=== PATIENT | female | born 1985 | race Caucasian/White ===

== ENCOUNTER 2017-09-02 08:28 | Emergency (ER) | END 2017-09-02 09:43 | disposition home or self-care (01) ==

== ENCOUNTER 2018-10-16 09:14 | Emergency (ER) | payer MEDICAID ==
[~2018-10-16] VITALS: Ht 165.1 cm; Wt 129.4 kg
[~2018-10-16 09:14] MED LIST: ACET500C5 PO; AMOX1TAB10 PO; CIPR7.5D BOTH EARS; NPH10OT LEFT EAR; PRENAT PO
[2018-10-16 09:20] VITALS: BP 131/75; PULSE 78; RESP 16; Ht 165.1 cm; Wt 129.4 kg
[2018-10-16] MEDS ORDERED: NPH10OT RIGHT EAR (09:46)
[2018-10-16] MEDS ORDERED: IBUP-1542 PO (09:46)
--- NOTE | 2018-10-16 10:02 | ERD ---
ER Documentation Chief Complaint Chief Complaint right ear pain and sore throat x 3 days HPI 33-year-old female presents with complaint of right ear pain and sore throat for the past 3 days. Patient denies any decreased hearing from her ear, discharge from the ear, swelling or tenderness behind her ears, fevers, chills, headache. Denies drooling, trismus, difficulty swallowing, muffled voice, difficulty breathing, rash, or neck stiffness. ROS All systems reviewed and are negative except as per history of present illness. Medications Home Meds Active Scripts Ibuprofen* (Motrin*) 600 Mg Tab, 600 MG PO Q6, #30 TAB Prov:ANNIE BRAXTON 10/16/18 Neomycin/Polymyxin/Hydrocort* (Cortisporin* Otic) 10 Ml Susp, 4 DROP RIGHT EAR QID for 7 Days, EA Prov:ANNIE BRAXTON 10/16/18 Neomycin/Polymyxin/Hydrocort* (Cortisporin* Otic) 10 Ml Susp, 4 DROP LEFT EAR QID for 7 Days, EA Prov:SARAH LICONA PA-C 05/19/18 Ciprofloxacin Hcl/Dexameth (Ciprodex Otic Suspension) 7.5 Ml Drops.susp, 4 DROP BOTH EARS BID for 7 Days, EA Prov:ARIAN RHOADES 09/02/17 Acetaminophen* (Tylophen*) 500 Mg Capsule, 1 CAP PO Q6H PRN for PAIN AND OR ELEVATED TEMP, #20 CAP Prov:ARIAN RHODAES F 09/02/17 Amoxicillin/Potassium Clav (Amox-Clav 875-125 mg Tablet) 875-125 mg Tab, 1 TAB PO BID for 7 Days, #14 TAB Prov:KALINAILAIRWIN WESLEYAR F 09/02/17 Reported Medications Multivit/Min/Fol Ac/Iron/Pren* ( S*) 1 Tab Tab, 1 TAB PO DAILY, TAB 10/11/13 Allergies Allergies: Coded Allergies: No Known Allergy (Verified , 09/02/17) PMhx/Soc Medical and Surgical Hx: pt denies Medical Hx, pt denies Surgical Hx History of Surgery: No Anesthesia Reaction: No Hx Neurological Disorder: No Hx Respiratory Disorders: No Hx Cardiac Disorders: No Hx Psychiatric Problems: No Hx Miscellaneous Medical Probl: No Hx Alcohol Use: No Hx Substance Use: No Hx Tobacco Use: No Smoking Status: Never smoker FmHx Family History: No diabetes, No coronary disease, No other Physical Exam Vitals Vital Signs Date Temp Pulse Resp B/P (MAP) Pulse Ox O2 O2 Flow FiO2 Time Delivery Rate 10/16/18 97.5 78 16 131/75 97 09:20 (93) Physical Exam Const: No acute distress Head: Atraumatic Eyes: Normal Conjunctiva ENT: Normal External Ears, Nose and Mouth. Right ear canal is edematous with white discharge noted. TM appears intact. There is no mastoid erythema, edema, or tenderness to palpation bilaterally. Tonsils are nonedematous erythematous bilaterally with no exudates. Uvula is midline. There are no peritonsillar masses noted. Neck: Full range of motion. No meningismus. No lymphadenopathy Resp: Clear to auscultation bilaterally Cardio: Regular rate and rhythm, no murmurs Abd: Soft, non tender, non distended. Normal bowel sounds Skin: No petechiae or rashes Back: No midline or flank tenderness Ext: No cyanosis, or edema Neur: Awake and alert Psych: Normal Mood and Affect Procedures/MDM MDM: Patient's throat exam was within normal limits and patient does not meet Cent[facility] criteria for rapid strep. Patient's presentation consistent with otitis externa. Patient given Rx for Cortisporin and peripheral pain. I will suspicion for malignant otitis externa, mastoiditis, ruptured TM, otitis media, or any emergent condition. At this time, patient is stable for discharge and outpatient management. I have instructed the patient to follow-up with his/her primary care physician in 1-2 days. I have discussed with the patient the possibility of needing to see a specialist for further workup and imaging studies if symptoms persist. I have instructed the patient to promptly return to the ER for any new or worsening symptoms including but not limited to increased pain, fever, nausea, vomiting, weakness or LOC. The patient and/or family expressed understanding of and agreement with this plan. All questions were answered. Home care instructions were provided. Communication with patient both during the exam and instructions for discharge were performed with using a administrative receptionist . Patient gave verbal confirmation to the practitioner, through the administrative receptionist, that they understood everythign that was being said to them. DISCLAIMER: Inadvertent spelling and grammatical errors are likely due to EHR/dictation software use and do not reflect on the overall quality of patient care. Also, please note that the electronic time recorded on this note does not necessarily reflect the actual time of the patient encounter. Departure Diagnosis: Primary Impression: Otitis externa Condition: Stable Patient Instructions: External Ear Infection (Adult) Referrals: COMMUNITY CLINICS YOU HAVE RECEIVED A MEDICAL SCREENING EXAM AND THE RESULTS INDICATE THAT YOU DO NOT HAVE A CONDITION THAT REQUIRES URGENT TREATMENT IN THE EMERGENCY DEPARTMENT. FURTHER EVALUATION AND TREATMENT OF YOUR CONDITION CAN WAIT UNTIL YOU ARE SEEN IN YOUR DOCTORS OFFICE WITHIN THE NEXT 1-2 DAYS. IT IS YOUR RESPONSIBILITY TO MAKE AN APPOINTMENT FOR FOLOW-UP CARE. IF YOU HAVE A PRIMARY DOCTOR --you should call your primary doctor and schedule an appointment IF YOU DO NOT HAVE A PRIMARY DOCTOR YOU CAN CALL OUR PHYSICIAN REFERRAL HOTLINE AT IF YOU CAN NOT AFFORD TO SEE A PHYSICIAN YOU CAN CHOSE FROM THE FOLLOWING [facility] [id number] [facility]. [facility] [address] [facility] [address] [facility] [address] [facility] [address] [facility]. [facility] [address] Additional Instructions: FOLLOW UP WITH YOUR PRIMARY CARE PHYSICIAN TOMORROW.Return to this facility if you are not improving as expected. ANNIE BRAXTON Oct 16, 2018 10:02
== END 2018-10-16 09:53 | disposition home or self-care (01) ==
LOC: FTE 09:14
DX: H60.91 Unspecified otitis externa, right ear (principal)
CPT/HCPCS: 99283